=== PATIENT | female | born 1990 | race Caucasian/White ===

== ENCOUNTER 2018-05-24 13:06 | Emergency (ER) | payer OTHER ==
[~2018-05-24] VITALS: Ht 157.5 cm; Wt 72.6 kg
--- NOTE | 2018-05-24 14:08 | ED PSYCHIATRIC COMPLAINT ---
History of Present Illness General Chief Complaint: General Adult Stated Complaint: ANXIETY ATTACK PER PT Source: patient Exam Limitations: no limitations Vital Signs & Intake/Output Vital Signs & Intake/Output Vital Signs Date Time Temp Pulse Resp B/P B/P Pulse O2 O2 Flow FiO2 Mean Ox Delivery Rate 05/24 2217 98.2 91 20 123/76 98 Room Air 05/24 1840 98.1 82 20 102/56 100 Room Air 05/24 1637 98.7 106 20 130/74 98 Room Air 05/24 1434 97.8 80 128/81 99 Room Air 05/24 1325 98.1 75 18 126/77 98 Room Air ED Intake and Output 05/25 0000 05/24 1200 Intake Total Output Total Balance Patient 160 lb Weight Allergies Coded Allergies: cat dander (Intermediate, CATS 05/24/18) Triage Note: 28F TO ED FOR ANXIETY ATTACK, APPEARS STABLE AND CALM IN TRIAGE. REPORTS DIFFICULTY CONCENTRATING. DENIES CURRENT PSYCHOTROPIC MEDS. RECENTLY MOVED HERE FROM [place], MULTIPLE LIFE CHANGES AND STRESSORS. DOES NOT HAVE FRIENDS OR FAMILY HERE. +PASSIVE SI WITHOUT PLAN, DENIES HI. SOBER FROM ETOH X6 YEARS. DENIES ILLICIT DRUG USE. EXPLAINED TO PT THE PLAN OF CARE AND EVALUATION, AGREEABLE AND REMAINS CALM AND COOPERATIVE. AMBULATORY TO ROOM 14 AND TO BATHROOM W URINE SPECIMEN CUP AND CHANGING INTO SCRUBS Triage Nurses Notes Reviewed? yes Onset: Gradual Duration: week(s): (3-4), changing over time, continues in ED Timing: recent history Severity: mild, moderate Associated Symptoms: anxiety, impaired concentration LMP (ages 10-50): unknown : No Patient currently breastfeeds: No HPI: 28-year-old female past medical history of anxiety since her evaluation of worsening anxiety and depression. Patient reports the past several weeks she has had multiple life stressors including recently moving from [place]. She reports increasing anxiety. She reports she has had some intermittent thoughts of HURTING herself but denies active suicidal ideation or plan. No homicidal ideation. She also reports years voices but does not know what they say. Denies any visual hallucinations drug or alcohol use chest pain or shortness of breath. She is not taking any psychiatric medication she's never been hospitalized for psychiatric issues. She denies chest pain shortness of breath. (Timmy PAREDES,Yadiel) Past History Travel History Traveled to [place] past 21 day No Medical History Any Pertinent Medical History? see below for history Psychiatric: ETOH SOBRIETY 2012 Surgical History Surgical History: non-contributory Psychosocial History What is your primary language Romanian Tobacco Use: Never used Family History Hx Contributory? No (Yadiel Butts) Review of Systems Review of Systems Constitutional: Reports: no symptoms. EENTM: Reports: no symptoms. Respiratory: Reports: no symptoms. Cardiovascular: Reports: no symptoms. GI: Reports: no symptoms. Genitourinary: Reports: no symptoms. Musculoskeletal: Reports: no symptoms. Skin: Reports: no symptoms. Neurological/Psychological: Reports: see HPI, anxiety, depressed. Hematologic/Endocrine: Reports: no symptoms. Immunologic/Allergic: Reports: no symptoms. All Other Systems: Reviewed and Negative (Yadiel Butts) Physical Exam Physical Exam General Appearance: well developed/nourished, no apparent distress, alert, awake , comfortable Head: atraumatic, normal appearance Eyes: Bilateral: normal appearance, PERRL, EOMI. Ears, Nose, Throat: hearing grossly normal Neck: normal inspection, supple, full range of motion Respiratory: normal breath sounds, chest non-tender, no respiratory distress, lungs clear Cardiovascular: regular rate/rhythm Gastrointestinal: soft, non-tender Extremities: normal range of motion Neurological/Psychiatric: no motor/sensory deficits, awake, alert, calm Appearance/Memory/Insight: appropriate appearance, appropriate insight Behavoir/Eye Contact/Speech: cooperative, normal speech, good eye contact Thoughts/Hallucinations: auditory hallucinations Skin: intact, normal color, warm/dry SAD PERSONS Done? patient not suicidal (Yadiel Butts) Progress Differential Diagnosis: dementia, drug intoxication, drug overdose, drug withdrawal, electrolyte abnormality Plan of Care: Orders Procedure Date/time Status Regular Diet 05/24 D Active Continuous Observation Monitor 05/24 1455 Active URINE 05/24 1324 Complete URINE DRUG SCREEN FOR ER ONLY 05/24 1324 Complete URINALYSIS 05/24 1324 Complete ETHANOL 05/24 1324 Complete COMPREHENSIVE METABOLIC PANEL 05/24 1324 Complete CBC WITHOUT DIFFERENTIAL 05/24 132 Complete ED CRISIS PSYCH CONSULT 05/24 1324 Active Laboratory Tests 05/24/18 1419: Anion Gap 13, Estimated GFR > 60, BUN/Creatinine Ratio 16.7, Glucose 83, Calcium 9.8, Total Bilirubin 1.3, AST 14, ALT 31, Alkaline Phosphatase 53, Total Protein 7.6, Albumin 4.8, Globulin 2.8, Albumin/Globulin Ratio 1.7, CBC w Diff NO MAN DIFF REQ, RBC 4.70, MCV 82.4, MCH 28.8, MCHC 34.9, RDW 14.3, MPV 9.5, Gran % 76.7 H, Lymphocytes % 17.0 L, Monocytes % 5.5, Eosinophils % 0.1, Basophils % 0.7, Absolute Granulocytes 4.2, Absolute Lymphocytes 0.9 L, Absolute Monocytes 0.3, Absolute Eosinophils 0, Absolute Basophils 0, Serum Alcohol < 10.0 05/24/18 1412: Urine Opiates Screen < 100, Methadone Screen < 40, Barbiturate Screen < 60, Ur Phencyclidine Scrn < 6.00, Amphetamines Screen < 100, U Benzodiazepines Scrn < 85, Urine Cocaine Screen < 50, Urine Cannabis Screen < 5.00, Urine Color YEL, Urine Clarity HAZY H, Urine pH 6.0, Ur Specific [place] 1.020, Urine Protein NEG, Urine Ketones 15 H, Urine Nitrite NEG, Urine Bilirubin NEG, Urine Urobilinogen 0.2, Ur Leukocyte Esterase TRACE H, Ur Microscopic SEDIMENT EXAMINED, Urine RBC 1-3, Urine WBC 3-5 H, Ur Epithelial Cells MOD H, Urine Bacteria FEW H, Urine Hemoglobin MOD H, Urine Glucose NEG, Urine Test NEGATIVE Patient is here for evaluation of anxiety and depression. She reports she has had intermittent thoughts of wanting to hurt herself but denies an actual plan. No homicidal ideation she also notes she has been hearing voices but is unsure exactly what they're saying. No visual hallucinations no alcohol or drug use. Patient denies being treated for psychiatric issues in the past. She is not taking any medicines. Labs ordered patient will be seen by crisis. Patient was reporting increasing anxiety she was medicated with Atarax. Patient will be transferred to another facility for inpatient treatment. (Yadiel Butts) Departure Departure Disposition: OTHER GENERAL HOSPITAL (ACUTE) Condition: Stable Clinical Impression Primary Impression: Anxiety Secondary Impressions: Depressed Qualifiers: Depression Type: unspecified Qualified Code: F32.9 - Major depressive disorder, single episode, unspecified Referrals: Patient Has No Primary Care Dr (PCP/Family) Departure Forms: Customer Survey General Discharge Information (Yadiel Butts) PA/ADMITTING INTERVIEWER Co-Sign Statement Statement: ED Attending supervision documentation- [] I saw and evaluated the patient. I have also reviewed all the pertinent lab results and diagnostic results. I agree with the findings and the plan of care as documented in the PA's/ADMITTING INTERVIEWER's documentation. [x] I have reviewed the ED Record and agree with the PA's/ADMITTING INTERVIEWER's documentation. pt being transferred to an inpatient psychiatric facility. [] Additions or exceptions (if any) to the PAs/ADMITTING INTERVIEWER's note and plan are summarized below: [] (See AVILEZ,Joshua Rae)
[2018-05-24 14:35] LABS: ABSOLUTE BASOPHIL COUNT 0 /CUMM (0.0-0.2); ABSOLUTE EOSINOPHIL COUNT 0 /CUMM (0.0-0.7); ABSOLUTE GRANULOCYTE CT 4.2 /CUMM (1.4-6.5); ABSOLUTE LYMPH COUNT 0.9 /CUMM (1.2-3.4); ABSOLUTE MONOCYTE COUNT 0.3 /CUMM (0.10-0.60); BASOPHIL % 0.7 % (0.0-2.0); EOSINOPHIL % 0.1 % (0-5); GRANULOCYTE % 76.7 % (42.2-75.2); HEMATOCRIT 38.7 % (37-47); MEAN CORPUSCULAR HGB 28.8 PG (27.0-31.0); MEAN CORPUSCULAR HGB CONC 34.9 G/DL (33.0-37.0); MEAN CORPUSCULAR VOLUME 82.4 FL (81.0-99.0); MEAN PLATELET VOLUME 9.5 FL (7.4-10.4); PLATELET COUNT 263 /CUMM (130-400); RBC DISTRIBUTION WIDTH 14.3 % (11.5-14.5); WHITE BLOOD CELL COUNT 5.4 /CUMM (4.8-10.8)
--- NOTE | 2018-05-24 17:28 | ED PSYCH CRISIS CONSULTATION ---
Crisis Consult Basic Assessment Date of Consult: 05/24/18 Responsible Person/Accompanied By: Self & Father, Yovani Falcon Insurance Authorization: Insurance #1: Insurance name: OUT OF [facility] Phone number: Policy number: [id number] Group number: Authorization number: ED Provider: Patient's ED Provider: Yadiel Butts Primary Care Physician: Patient's PCP: Patient Has No Primary Care Dr PCP's Phone Number: Current Psychiatrist: No current provider Chief Complaint: Psychiatric Related Complaint Patient's Quote: "Work and being alone has been rough." Present Illness: The patient is a 28 year old single female presenting to the ED with a complaint of an anxiety attack and passive SI. The patient presented as alert, depressed, anxious, hopeless, helpless and orientated x3 with labile mood and congruent affect. The Patient reports interrupted sleep (5 hours per night due to worrying), normal appetite, decreased energy and motivation, and her concentration being "not good at all." The patient reports anxiety of 10 and depression of 7 on a scale of 0 to 10, 10 being most severe. The patient reports passive SI with no plan. She reports a history of a prior suicide attempt at the age of 21 (plan was to drink alcohol and cut her wrists. She drank excessive amount of alcohol, but did not cut her wrist.) The patient denies HI and visual hallucinations. The patient reports auditory hallucinations of believing she was hearing other people's thoughts (not command in nature). The patient reports her primary stressor is relocating to [place] from [place] 4 months ago for a new job at [employer]. She reports not being good with transitions as her family relocated a lot when she was a child. She reports having a difficult time making social contacts since moving, worrying about a licensure test for work and feeling isolated, anxious, depressed and alone. The patient reports being sober since 2011, her alcohol dependence being in remission. She reports no prior inpatient hospitalizations. She reports completing a dual diagnosis IOP when she was 22 years old at [facility] in [place]. She reports seeing a psychologist, Dr. Goode while she was in [place] and has no current provider since moving to [place]. She is currently on no psychiatric medications. Patient reports she does not feel safe to go home and is agreeable to a voluntary inpatient admission. Completed C-SSRS, identified risk factors: actual suicide attempt at 21 y/o, suicidal thoughts, recent breakup with boyfriend, not receiving treatment, hopelessness, helplessness, major depressive episode, mixed affective episode, substance dependence and agitation/severe anxiety; protective factors: identifies reasons for living, responsibility to family and engaged in work. Spoke to patient's father, Yovani Falcon . Yovani states that the patient started a new job a few months ago and has been stressed over a licensure test coming up and the relocation to [place]. He reports the patient dealt with alcohol dependence, depression and anxiety when she was in college. He reports the patient received therapy for many years and was last being seen by a psychologist, jarrell Goode ([phone]) when she lived in [place]. He states that his daughter was on no medications and not seeing any provider since moving to [place]. He agrees the patient needs treatment to help stabilize her mood and manage the transition in her life. Patient's Address: [address] [place] [address] Other Phone Number: Who Do You Live With? Patient/Self Family/Informants Interviewed: Father, Yovani Falcon Allergies - Coded Allergies: cat dander (Intermediate, CATS 05/24/18) Laboratory Results: Laboratory Tests 05/24/18 1419: Anion Gap 13, Estimated GFR > 60, BUN/Creatinine Ratio 16.7, Glucose 83, Calcium 9.8, Total Bilirubin 1.3, AST 14, ALT 31, Alkaline Phosphatase 53, Total Protein 7.6, Albumin 4.8, Globulin 2.8, Albumin/Globulin Ratio 1.7, CBC w Diff NO MAN DIFF REQ, RBC 4.70, MCV 82.4, MCH 28.8, MCHC 34.9, RDW 14.3, MPV 9.5, Gran % 76.7 H, Lymphocytes % 17.0 L, Monocytes % 5.5, Eosinophils % 0.1, Basophils % 0.7, Absolute Granulocytes 4.2, Absolute Lymphocytes 0.9 L, Absolute Monocytes 0.3, Absolute Eosinophils 0, Absolute Basophils 0, Serum Alcohol < 10.0 05/24/18 1412: Urine Opiates Screen < 100, Methadone Screen < 40, Barbiturate Screen < 60, Ur Phencyclidine Scrn < 6.00, Amphetamines Screen < 100, U Benzodiazepines Scrn < 85, Urine Cocaine Screen < 50, Urine Cannabis Screen < 5.00, Urine Color YEL, Urine Clarity HAZY H, Urine pH 6.0, Ur Specific [place] 1.020, Urine Protein NEG, Urine Ketones 15 H, Urine Nitrite NEG, Urine Bilirubin NEG, Urine Urobilinogen 0.2, Ur Leukocyte Esterase TRACE H, Ur Microscopic SEDIMENT EXAMINED, Urine RBC 1-3, Urine WBC 3-5 H, Ur Epithelial Cells MOD H, Urine Bacteria FEW H, Urine Hemoglobin MOD H, Urine Glucose NEG, Urine Test NEGATIVE Past History Past Medical History Psychiatric: ETOH SOBRIETY 2012 Psychosocial History Strengths/Capabilities: 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 Physical Limitations (Interventions): None noted Psychiatric Treatment History Psych Treatment Psychiatric Treatment Yes Inpatient Treatment No Outpatient Treatment Yes Location of Treatment [place] 22 [address] Goode (therapist) Reason for Treatment Alcohol dependence, depression, anxiety Dates of Treatment 2011 to couple of months ago, until moved to [place] Response to Treatment Patient has decompensated and presents with passive SI, depression and anxiety. Diagnosis by History: Alcohol dependence, depression and anxiety Substance Use/Abuse History Drug Use/Abuse Substances Used/Abused Yes Substance Used/Abused Alcohol First Use 19 years old Last Used 22 years old How much used/taken In remission How often In remission For how long In remission Route of use In remission Substance Abuse Treatment Substance Abuse Treatment Past Substance Abuse [place] Yes Inpatient Treatment No Outpatient Treatment Yes Location of Treatment [facility] in [place] Reason for Treatment Alcohol dependecne, depression and anxiety Dates of Treatment 2012 Response to Treatment Patient reports she has been sober since 2012. Comments: None Current Mental Status Mental Status Orientation: Person, Place, Situation Affect: Anxious, Depressed, Hopeless, Labile Speech: WNL Neuro-vegetative: Concentration Poor, Energy Decreased, Helpless, Sleep Disturbance Appearance Appearance- Dress/Hygiene: Patient was dressed in hospital scrubs, well-groomed and hygienic. Behaviors Thought Process: WNL Thought Content: Auditory Hallucinations Memory: WNL Insight: Fair SI/HI Risk Assessment Past Suicidal Ideation/Attempts Yes Current Suicidal Ideation/Att Yes Past Homicidal Ideation/Att: No Current Homicidal Ideation/Attempts No Degree of Intent: Thoughts/No Intent Danger To: Self Gravely Disabled: N/A Risk Factors: high anxiety/distress, history of suicide atmpts, substance abuse, isolate/no social support, lives alone Lethality Ratin PTSD Checklist PTSD Done? patient declined ED Management Sitter: Yes Restraints: No DSM5/PS Stressors/Medical Prob Diagnosis' (DSM 5, Stressors, Medical): F32.9 Unspecified Depressive Disorder F41.9 Unspecified Anxiety Disorder R/O Bipolar Disorder F10.20 Alcohol Use disorder, severe, in remission Stressors: primary support, relocation to new state, limited social supports Medical: None Current GAF: 25 Comments: None Departure Disposition Psych Medical Clearance Date: 05/24/18 Medically Cleared at: 1353 Time Started: 1515 Time Ended: 1600 Psychiatrist Consulted: Danielle Sky MD Date Disposition Established: 05/24/18 Time Disposition Established: 1709 Plan for Disposition - Modality: Bed Search Rationale for Disposition: Patient presented as anxious, depressed, hopeless, helpless with passive SI and unstable mood. Patient states she does not feel safe to go home and requests inpatient admission. Dr. Sky agrees the patient is a risk to herself and is in need of inpatient admission. A bed search will be conducted. Type of IP Admission: Voluntary Additional Instructions: None Referrals Patient Has No Primary Care Dr (PCP/Family)
[2018-05-24 22:17] VITALS: BP 123/76
== END 2018-05-24 22:28 | disposition short-term general hospital (02) ==
LOC: ERH 13:06
PROVIDERS: Physician Assistant
DX: F41.9 Anxiety disorder, unspecified (principal); F32.9 Major depressive disorder, single episode, unspecified
CPT/HCPCS: 80307; 81001; 81025; G0463; G0480